=== PATIENT | female | born 1985 | race Caucasian/White ===

== ENCOUNTER 2022-06-02 19:36 | Emergency (ER) | payer OTHER, SELFPAY ==
--- NOTE | 2022-06-02 19:39 | ED.NAVMDI ---
HPI - Nausea/Vomiting/Diarrhea General Chief complaint: Nausea/Vomiting/Diarrhea Stated complaint: Nausea/Vomiting Time Seen by Provider: 06/02/22 19:39 Source: patient and RN notes reviewed History of Present Illness HPI Narrative: patient is a 36-year-old female presents to urgent care with complaints of nausea, vomiting and loose stools that started at 2:00 a.m. this morning. Patient denies any abdominal discomfort or urinary symptoms. Denies any fever. States that her daughter recently had the same symptoms and had leftover Zofran to help with her nausea. Patient states that she is missing work. No other acute complaints. No acute distress noted. Patient aware of the plan of care. Some parts of this dictation were generated by voice recognition software and may contain typographical and/or grammatical inaccuracies. Related Data Home Medications Medication Instructions Recorded Confirmed famotidine 10 mg tablet 10 mg PO DAILY 06/02/22 06/02/22 pantoprazole 20 mg tablet,delayed 20 mg PO HS 06/02/22 06/02/22 release Allergies Allergy/AdvReac Type Severity Reaction Status Date / Time divalproex sodium Allergy Mild Swelling Verified 06/02/22 19:45 azithromycin Allergy Unknown Swelling Verified 06/02/22 19:45 Review of Systems Review of Systems: CONSTITUTIONAL: Denies fever, chills, or sweats. EYES: Denies visual changes, redness, or discharge. ENT: Denies rhinorrhea, congestion, sore throat, or otalgia. CARDIOVASCULAR: Denies chest pain, palpitations, or edema. RESPIRATORY: Denies cough or dyspnea. GASTROINTESTINAL: Reports of nausea, vomiting and loose stools GENITOURINARY: Denies dysuria or hematuria. SKIN: Denies rash or itching. MUSCULOSKELETAL: Denies back pain, joint pain, or myalgia. NEUROLOGIC: Denies headache, numbness, or weakness. All other systems reviewed are negative, except as documented in HPI. PMFSH Comments At the time of my signature, I reviewed and agree with the nursing past medical, surgical, social, and family history. There is no relevant family history pertinent to the patient complaint. Exam Narrative: GENERAL: This is a well-nourished, well-developed patient, in no apparent distress. HEAD: normocephalic, atraumatic. EYES: PERRL. Sclera clear/white. Vision is grossly intact. EARS: External ears normal NOSE: External nose normal with no obvious nasal discharge, nares without redness, no rhinorrhea. THROAT: Mucous membranes moist NECK: Neck supple CARDIOVASCULAR: Regular rate and rhythm without murmurs, gallops, or rubs. RESPIRATORY: Clear to auscultation. Breath sounds equal bilaterally. No wheezes, rales, or rhonchi. GASTROINTESTINAL: Abdomen soft, non-tender, nondistended. Bowel sounds are active. SKIN: warm, intact with no suspicious lesions or rash, good texture and turgor. NEURO: awake, alert, and oriented to person, place and time. There were no obvious focal neurologic abnormalities. EXTREMITIES: No clubbing, cyanosis, or edema. Course Course Level of Care: Express Care Visit Vital Signs Vital signs: Vital Signs Temperature 97.1 F L 06/02/22 19:46 Pulse Rate 83 06/02/22 19:46 Respiratory Rate 18 06/02/22 19:46 Blood Pressure 132/68 06/02/22 19:46 Pulse Oximetry 100 06/02/22 19:46 Temperature 97.1 F L 06/02/22 19:47 Pulse Rate 83 06/02/22 19:47 Respiratory Rate 18 06/02/22 19:47 Blood Pressure 132/68 06/02/22 19:47 Pulse Oximetry 100 06/02/22 19:47 reviewed MDM - Nausea/Vomiting/Diarrhea MDM Narrative Medical decision making narrative: explained our patient that our facility is unable to complete full evaluation on abdominal issues. Therefore if her symptoms exacerbate with elevated fevers, nausea, vomiting, abdominal pain -go to the emergency room. Eat a bland diet for the next 48 hours and increase water intake. May use Pepto-Bismol [id number] as well as the prescription Zofran as needed for symptom relief.
[2022-06-02 19:46] VITALS: BP 132/68; PULSE 83; RESP 18; TEMP 36.2; O2SAT 100
[2022-06-02 19:47] VITALS: BP 132/68; PULSE 83; RESP 18; TEMP 36.2; O2SAT 100
== END 2022-06-02 19:50 | disposition home or self-care (01) ==
PROVIDERS: Emergency Provider Nurse Practitioner Family
DX: R11.2 Nausea with vomiting, unspecified (principal); K21.9 Gastro-esophageal reflux disease without esophagitis
CPT/HCPCS: 99203; G0463